=== PATIENT | female | born 1980 | race American Indian/Alaskan Native ===

== ENCOUNTER 2020-01-09 08:00 | Outpatient (CLI) | payer OTHER ==
[2020-01-09 18:45] LABS: BASOPHILS % (AUTO) 0.4 %; EOSINOPHILS # (AUTO) 0.1 10^3/uL (0.0-0.7); EOSINOPHILS % (AUTO) 0.9 %; HGB - HEMOGLOBIN 12.8 g/dL (12.0-16.0); LYMPHOCYTES # (AUTO) 2.3 10^3/uL (1.5-3.5); LYMPHOCYTES % (AUTO) 30.7 %; MEAN CORPUSCULAR HEMOGLOBIN 31.3 pg (27.0-31.0); MEAN CORPUSCULAR HGB CONC 32.5 g/dL (32.0-36.0); MEAN CORPUSCULAR VOLUME 96.3 fL (81.0-99.0); MEAN PLATELET VOLUME 11.2 fL (7.9-10.8); MONOCYTES # (AUTO) 0.4 10^3/uL (0.0-1.0); MONOCYTES % (AUTO) 5.2 %; NEUTROPHILS # (AUTO) 4.6 10^3/uL (1.5-6.6); NEUTROPHILS % (AUTO) 62.5 %; PLT - PLATELET COUNT 260 10^3/uL (130-450); RED BLOOD COUNT 4.09 10^6/uL (4.20-5.40); RED CELL DISTRIBUTION WIDTH 12.4 % (12.0-15.0); WHITE BLOOD COUNT 7.4 x10^3/uL (4.8-10.8)
[2020-01-09 19:16] LABS: ALBUMIN/GLOBULIN RATIO 1.2 (1.0-2.2); BILIRUBIN,TOTAL 0.3 mg/dL (0.2-1.0); CALCIUM 8.9 mg/dL (8.5-10.3); CREATININE 0.7 mg/dL (0.4-1.0); TOTAL PROTEIN 7.4 g/dL (6.7-8.2)
== END 2020-01-09 23:59 | disposition home or self-care (01) ==
LOC: LAB.WCP 08:00
PROVIDERS: ATTEND Physician Assistant
DX: E55.9 Vitamin D deficiency, unspecified (principal); Z79.899 Other long term (current) drug therapy; F32.1 Major depressive disorder, single episode, moderate
CPT/HCPCS: 36415; 80053; 82306; 84443; 85025

== ENCOUNTER 2020-01-30 08:00 | Outpatient (CLI) | payer OTHER | END 2020-01-30 23:59 | disposition home or self-care (01) | LOC: LAB.R 08:00 | PROVIDERS: ATTEND Family Medicine | DX: R39.15 Urgency of urination (principal) | CPT/HCPCS: 87077; 87086; 87181 ==

== ENCOUNTER 2020-11-14 15:15 | Outpatient (CLI) | payer OTHER ==
[2020-11-14 16:16] VITALS: BP 108/76
--- NOTE | 2020-11-14 16:16 | SLEEP CARE CONSULTATION ---
Information from patient questionnaire entered by Aysha Patricio. I have reviewed and concur with the information entered by Aysha Patricio. This document represents the service I personally performed and the decisions made by me, Ca Goetz ARNP. History of Present Illness Service Date and Time: 11/14/2020 1515 Reason for Visit: New patient Chief Complaint: reports: Insomnia, Unrefreshed sleep, Snoring, Excessive daytime sleepiness, Fatigue, Frequent awakenings at night. denies: Observed pauses in breathing Date of Onset: over 2 years Usual bedtime: 9-10 pm Time it takes to fall asleep: 20 minutes plus; can take upwards of hours Snores at night: Yes Observed to quit breathing while asleep: No Sleeps alone due to snoring: No Number of times waking at night: 4 plus Reasons for waking at night: reports: Pain, Bathroom, Other (noise, unknown autumn son). denies: Choking, Snoring, Gasping for air Toss, Turn, or Twitch while sleeping: Yes Recalls having dreams: Yes Usually gets out of bed at: 7-8 am Feels refreshed in the morning: No Morning headache: Yes (sometimes; 2-5 times a month for about 15-20 minutes to a few hours) Sleepy or fatigued during the day: Yes Ever fallen asleep while driving: No (some drowsy driving, no accidents) Takes day naps: No Prior sleep studies: No Additional HPI information: I had the pleasure of seeing YARA PAUL today regarding the possibility of her having a sleep disorder. Her current complaints are excessive daytime sleepiness, fatigue, frequent night awakenings, insomnia, and unrefreshed sleep. She has trouble falling asleep, staying asleep, trouble with concentration and daytime fatigue. She snores, it is light to loud and irregular. He has never mentioned pauses in breathing when asleep or gasping. 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 Patient is and lives in [place]. Have you smoked in the past 12 months: No Cigarettes per day (20/pack): 20 Years of smokin Quit date: 2012 - approx 8 years ago Smoking Pack Years: 5.0 Alcohol use: Yes Alcohol amount and frequency: 2-4 drinks twice a month Caffeine use: Yes Caffeine amount and frequency: varies, but daily Family History Family history of sleep disordered breathing: No Allergies and Home Medications Drug allergies reviewed: Yes (Serevent) Home medication list reviewed: Yes Allergy and home medication list: Paxil Buspirone control pill Trazodone for sleep Review of Systems Weight gain over past 5 years: 80 Cardiovascular: reports: leg or foot swelling. denies: high blood pressure Respiratory: reports: shortness of breath Gastrointestinal: denies: heartburn Neurological: denies: headaches Psychiatric: reports: anxiety, depression, mood disorder (PTSD), claustrophobia, other (PTSD) Ear/Nose/Throat: reports: wisdom teeth removed. denies: tonsillectomy Endocrine: reports: increased urination Musculoskeletal: reports: joint pain Immunologic: reports: allergies to food or environment (to envirnment) Physical Exam Blood Pressure: 108/76 Cuff size: wrist Heart Rate: 75 O2 Saturation: 99 Height: 5 ft 8 in Weight: 261 lb Body Mass Index: 39.6 BMI Classification: Obese Neck circumference: 15 (inches) Nostrils: patent to airflow Mouth and throat: narrow oropharynx Soft palate: long Hard palate: arched Uvula: normal Uvula visualization: 50% Mallampati Class II Tongue: enlarged in size with teeth leung on lateral edges Tonsils: 1+ Chin and jaw: normal size and position Neck: normal w/o lymphadenopathy or thyromegaly Heart: regular rate and rhythm Lungs: clear bilaterally Impression and Plan 1. Suspected Obstructive Sleep Apnea-Hypopnea Syndrome, as suggested by a history of loud and irregular snoring, morning headache, frequent awakening during the night, unrefreshed sleep, cognitive impairment, and excessive daytime sleepiness. Narrow oropharynx and obesity are common predisposing factors for obstructive sleep apnea-hypopnea syndrome. I recommend proceeding to polysomnography to confirm the diagnosis and to assess severity. If the patient has significant sleep disordered breathing, a manual CPAP titration study will also be performed to find the optimal treatment pressure. I informed the patient of what the sleep studies involve and after some discussion, obtained agreement to proceed. The pathophysiology of obstructive sleep apnea-hypopnea syndrome was discussed with the patient and health risks of cardiovascular and cerebrovascular disease if not treated. Risks of drowsy driving discussed in detail and patient advised to avoid long distance driving and to pipe puller at the first sign of drowsiness. Patient agreed to plan. * Schedule polysomnography +- manual CPAP titration study and return in 1-2 weeks after the study to discuss result and initiate therapy. * Avoid long distance driving or driving when feeling sleepy. * Avoid alcohol, sedative and muscle relaxant around bedtime. * Attempt to lose weight. * Review instructions provided by trained office staff on how to prepare for the sleep study. * Return for follow-up after sleep study completed. Counseling Topics: Weight loss health impact Visit Type: In Office Time Spent with Patient (minutes): 30 Provider Statement: I spent 100% of the Face to Face Visit with the patient with greater than 50% spent counseling the patient and coordination of care.
== END 2020-11-14 15:16 | disposition home or self-care (01) ==
LOC: SC 15:15
PROVIDERS: ATTEND Nurse Practitioner Family
DX: R06.83 Snoring (principal); R51.9 Headache, unspecified; G47.8 Other sleep disorders; R41.89 Other symptoms and signs involving cognitive functions and awareness; G47.10 Hypersomnia, unspecified; E66.9 Obesity, unspecified; Z68.39 Body mass index [BMI] 39.0-39.9, adult
CPT/HCPCS: 99203; 99212

== ENCOUNTER 2020-12-03 09:02 | Outpatient (CLI) | payer OTHER | END 2020-12-03 09:03 | disposition home or self-care (01) | LOC: SC 09:02 | PROVIDERS: ATTEND Nurse Practitioner Family | DX: R06.83 Snoring (principal); R51.9 Headache, unspecified; G47.8 Other sleep disorders; R06.81 Apnea, not elsewhere classified; R41.89 Other symptoms and signs involving cognitive functions and awareness; G47.10 Hypersomnia, unspecified; E66.9 Obesity, unspecified; Z68.39 Body mass index [BMI] 39.0-39.9, adult | CPT/HCPCS: 95806 ==

== ENCOUNTER 2020-12-13 15:23 | Outpatient (CLI) | payer OTHER ==
--- NOTE | 2020-12-13 15:41 | SLEEP CARE CONSULTATION ---
Information from patient questionnaire entered by Aysha Patricio. I have reviewed and concur with the information entered by Aysha Patricio. This document represents the service I personally performed and the decisions made by , Ca Goetz ARNP. History of Present Illness Service Date and Time: 12/13/2020 1523 Initial [place] Sleepiness Scale score: 13 (in 2020) Current [place] Sleepiness Scale score: 7 Additional HPI information: YARA PAUL returns for follow up and results of the recently performed home sleep study. The patient was informed of the following findings: no significant sleep disordered breathing with an average AHI of 4.5 and debra oxygen saturation of 90%. I explained the pathophysiology behind obstructive sleep apnea. Patient does not have sleep apnea and was advised how weight gain could increase the risk of developing sleep apnea in the future. I strongly encouraged the patient to lose weight. Patient has moderate snoring. Snoring can be reduced by weight loss. Weight loss is best achieved with diet consult. Patient instructed to contact PCP for referral. Snoring can also be treated with an oral appliance from a dentist. Advised to check insurance coverage. In addition, an ENT evaluation can be do to see if other treatment is indicated. Patient counseled not drink alcohol less than 4 hours before bedtime as it can increase snoring and apnea. Patient was cautioned about risks of drowsy driving until sleepiness symptoms resolve. Sleep Study - Results Type of Sleep Study: Home sleep study Prior sleep studies: No Polysomnography/Home Sleep Study results: Physician Impression: The quality of the study is good. The length of the study is adequate (> 240 minutes). Please also see the tabulated and graphic data. 1. No significant sleep disordered breathing, with an AHI of 4.5/hr and debra SaO2 of 90%. During the study, the patient had 21 apneas (20 obstructive, 0 central, 1 mixed) and 14 hypopneas. The longest episode lasted 43.5 seconds. The few respiratory events occurred independently of sleep stage and body position (supine AHI was 4.3 and non-supine, 4.70). Allergies and Home Medications Home medication list reviewed: Yes (no changes) Review of Systems Review of systems same as previous: Yes (no changes) Physical Exam Heart Rate: 76 O2 Saturation: 98 Height: 5 ft 8 in Weight: 257 lb Body Mass Index: 39.0 BMI Classification: Obese Impression and Plan Snoring but no significant sleep disordered breathing. Patient advised that often weight loss will reduce snoring as well as apnea risk. An oral appliance can also be used for snoring. This would require a dental consultation. Patient cautioned not to use other online appliances as can cause bite issues. A list of accredited dentists in area and one local dentist who makes oral appliances given to patient. Patient is advised to check if insurance will cover. An ENT consult can also be helpful to determine if any other treatment is an option. She has a history of anxiety, depression and mood disorder (PTSD). * Attempt to lose weight * Avoid alcohol consumption near bedtime * The patient is cautioned about driving until sleepiness is completely resolved. * Return as needed. Counseling Topics: Weight loss health impact Visit Type: In Office Time Spent with Patient (minutes): 14 Provider Statement: I spent 100% of the Face to Face Visit with the patient with greater than 50% spent counseling the patient and coordination of care.
== END 2020-12-13 15:24 | disposition home or self-care (01) ==
LOC: SC 15:23
PROVIDERS: ATTEND Nurse Practitioner Family
DX: R06.83 Snoring (principal); E66.9 Obesity, unspecified; Z68.39 Body mass index [BMI] 39.0-39.9, adult
CPT/HCPCS: 99212

== ENCOUNTER 2022-01-20 08:00 | Outpatient (CLI) | payer OTHER | END 2022-01-20 23:59 | disposition home or self-care (01) | LOC: LAB.R 08:00 | PROVIDERS: ATTEND Physician Assistant Medical | DX: R35.0 Frequency of micturition (principal) | CPT/HCPCS: 87086 ==

== ENCOUNTER 2022-02-23 07:30 | Outpatient (CLI) | payer OTHER | END 2022-02-23 23:59 | disposition home or self-care (01) | LOC: LAB.WCP 07:30 | PROVIDERS: ATTEND Nurse Practitioner | DX: E83.00 Disorder of copper metabolism, unspecified (principal) | CPT/HCPCS: 81599; 82525; 82570 ==

== ENCOUNTER 2022-03-17 08:00 | Outpatient (CLI) | payer OTHER ==
[2022-03-17 20:49] LABS: BILIRUBIN,URINE NEGATIVE (NEGATIVE); GLUCOSE, URINE (UA) NEGATIVE (NEGATIVE); KETONES,URINE (UA) NEGATIVE (NEGATIVE); LEUKOCYTE ESTERASE, URINE NEGATIVE (NEGATIVE); NITRITE,URINE NEGATIVE (NEGATIVE); OCCULT BLOOD,URINE NEGATIVE (NEGATIVE); PROTEIN,URINE NEGATIVE (NEGATIVE); UROBILINOGEN,URINE 0.2 (NORMAL) E.U./dL (NORMAL)
[2022-03-17 21:00] LABS: CLARITY,URINE CLEAR (CLEAR)
[2022-03-17 21:01] LABS: BACTERIA,URINE None Seen /HPF (None Seen); HCG UR QUAL NEGATIVE; RBC,URINE 0-5 /HPF (0-5); SQUAMOUS EPITHELIAL CELL,UR NONE SEEN (<= Few); WBC,URINE 0-3 /HPF (0-5)
== END 2022-03-17 23:59 | disposition home or self-care (01) ==
LOC: LAB 08:00
PROVIDERS: ATTEND Nurse Practitioner
DX: M54.50 Low back pain, unspecified (principal)
CPT/HCPCS: 36415; 81001; 81025; 84702; 87086

== ENCOUNTER 2022-07-29 12:25 | Outpatient (CLI) | payer OTHER | END 2022-07-29 12:26 | disposition home or self-care (01) | LOC: LAB.N 12:25 | PROVIDERS: ATTEND Nurse Practitioner | DX: R79.82 Elevated C-reactive protein (CRP) (principal) | CPT/HCPCS: 36415; 85651; 86140 ==

== ENCOUNTER 2022-08-05 09:43 | Outpatient (CLI) | payer OTHER | END 2022-08-05 09:44 | disposition critical access hospital (66) | LOC: EMS 09:43 | DX: T76.21XA Adult sexual abuse, suspected, initial encounter (principal) | CPT/HCPCS: A0425; A0429 ==

== ENCOUNTER 2022-08-05 10:06 | Emergency (ER) | payer OTHER ==
[2022-08-05 10:45] LABS: BILIRUBIN,URINE NEGATIVE (NEGATIVE); GLUCOSE, URINE (UA) NEGATIVE (NEGATIVE); KETONES,URINE (UA) NEGATIVE (NEGATIVE); LEUKOCYTE ESTERASE, URINE TRACE (NEGATIVE); NITRITE,URINE NEGATIVE (NEGATIVE); OCCULT BLOOD,URINE TRACE-INTA (NEGATIVE); PH,URINE 6.5 PH (5.0-7.5); PROTEIN,URINE NEGATIVE (NEGATIVE); UROBILINOGEN,URINE 0.2 (NORMAL) E.U./dL (NORMAL)
[2022-08-05 10:48] LABS: CLARITY,URINE CLEAR (CLEAR); HCG UR QUAL NEGATIVE
[2022-08-05 10:53] LABS: BACTERIA,URINE Rare /HPF (None Seen); RBC,URINE 0-5 /HPF (0-5); SQUAMOUS EPITHELIAL CELL,UR MOD Squamous (<= Few); WBC,URINE 0-3 /HPF (0-5)
[2022-08-05] MEDS ORDERED: AZITHROMYCIN 250 MG TABLET PO STA (11:23)
[2022-08-05] MEDS ORDERED: metroNIDAZOLE 250 MG TABLET PO STA (11:23)
[2022-08-05] MEDS ORDERED: cefTRIAXone 500 MG VIAL IM STA (11:23)
[2022-08-05] MEDS ORDERED: levonorgestreL 1.5 MG TABLET PO STA (11:25)
[2022-08-05] MEDS: LIDOCAINE 1% 2 ML VIAL MC ONE ×2 (11:44→11:45)
[2022-08-05] MEDS ORDERED: ONDANSETRON ODT 4 MG TABLET TL STA (12:11)
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
[2022-08-05 12:54] VITALS: BP 131/84
[2022-08-05 14:52] LABS: CHLAMYDIA TRACHOMATIS DNA POSITIVE (NEGATIVE); NEISSERIA GONORRHOEAE DNA NEGATIVE (NEGATIVE); TRICHOMONAS VAGINALIS DNA NEGATIVE (NEGATIVE)
== END 2022-08-05 13:04 | disposition short-term general hospital (02) ==
LOC: EDUNIT# → ED 10:06
DX: T76.21XA Adult sexual abuse, suspected, initial encounter (principal)
CPT/HCPCS: 81001; 81025; 87491; 87591; 87661; 96372; 99284; 99285; A9270; Q0162; 81003; 87086

== ENCOUNTER 2022-08-31 11:23 | Outpatient (CLI) | payer OTHER ==
[2022-08-31 17:34] LABS: BILIRUBIN,URINE NEGATIVE (NEGATIVE); GLUCOSE, URINE (UA) NEGATIVE (NEGATIVE); KETONES,URINE (UA) NEGATIVE (NEGATIVE); LEUKOCYTE ESTERASE, URINE NEGATIVE (NEGATIVE); NITRITE,URINE NEGATIVE (NEGATIVE); OCCULT BLOOD,URINE TRACE-INTA (NEGATIVE); PROTEIN,URINE NEGATIVE (NEGATIVE); UROBILINOGEN,URINE 0.2 (NORMAL) E.U./dL (NORMAL)
[2022-08-31 17:37] LABS: CLARITY,URINE CLOUDY (CLEAR)
[2022-08-31 18:22] LABS: AMORPHOUS SEDIMENT,UR Marked /LPF; BACTERIA,URINE Many /HPF (None Seen); RBC,URINE 0-5 /HPF (0-5); SQUAMOUS EPITHELIAL CELL,UR MANY Squamous (<= Few); WBC,URINE 0-3 /HPF (0-5)
[2022-08-31 23:27] LABS: CHLAMYDIA TRACHOMATIS DNA NEGATIVE (NEGATIVE); NEISSERIA GONORRHOEAE DNA NEGATIVE (NEGATIVE); TRICHOMONAS VAGINALIS DNA NEGATIVE (NEGATIVE)
== END 2022-08-31 11:24 | disposition home or self-care (01) ==
LOC: LAB.N 11:23
PROVIDERS: ATTEND Physician Assistant
DX: Z91.410 Personal history of adult physical and sexual abuse (principal)
CPT/HCPCS: 81001; 87086; 87491; 87591; 87661